=== PATIENT | male | born 1990 | race Hispanic/Latino ===

== ENCOUNTER 2019-09-29 16:23 | Emergency (ER) | payer SELFPAY ==
--- NOTE | 2019-09-29 19:44 | ER ---
Nurse's Notes [facility] Name: Shania Bowman Age: 29 yrs Sex: Male : 1990 Arrival Date: 09/29/2019 Time: 16:25 Bed 19 Private MD: Diagnosis: Acute upper respiratory infection, unspecified Presentation: 09/28 16:42 Chief complaint: Patient states: My GF said she has symptoms of Covid and I have been ca1 with her for a week in a motel. I don't have symptoms, I just want to get tested. Coronavirus screen: Proceed with normal triage. Patient denies a cough. Patient denies shortness of breath or difficulty breathing. Patient denies measured and/or subjective temperature greater than 100.4F prior to today's visit. Patient denies travel on a cruise ship or to a country the [facility] currently lists as an affected area. Patient denies contact with known and/or suspected case of COVID-19. Ebola Screen: Patient negative for fever greater than or equal to 101.5 degrees Fahrenheit, and additional compatible Ebola Virus Disease symptoms Patient denies exposure to infectious person. Patient denies travel to an Ebola-affected area in the 21 days before illness onset. No symptoms or risks identified at this time. Initial Sepsis Screen: Does the patient meet any 2 criteria? No. Patient's initial sepsis screen is negative. Does the patient have a suspected source of infection? No. Patient's initial sepsis screen is negative. Risk Assessment: Do you want to hurt yourself or someone else? Patient reports no desire to harm self or others. Onset of symptoms was September 29, 2019. 16:42 Method Of Arrival: Ambulatory ca1 16:42 Acuity: BROCK 4 ca1 Triage Assessment: 18:45 General: Appears in no apparent distress. comfortable, Behavior is calm, cooperative, bp appropriate for age. Pain: Denies pain. EENT: No deficits noted. Neuro: No deficits noted. Cardiovascular: No deficits noted. Respiratory: No deficits noted. GI: No signs and/or symptoms were reported involving the gastrointestinal system. : No signs and/or symptoms were reported regarding the genitourinary system. Derm: No deficits noted. Musculoskeletal: No deficits noted. Historical: - Allergies: 16:44 No Known Allergies; ca1 - Home Meds: 16:44 None [Active]; ca1 - PMHx: 16:44 None; ca1 - PSHx: 16:44 None; ca1 - Immunization history:: Adult Immunizations up to date. - Social history:: Smoking status: Patient reports the use of cigarette tobacco products, denies chronic smoking, but will smoke occasionally, Patient/guardian denies using alcohol, street drugs, The patient lives with family. - Family history:: not pertinent. Screenin:45 Abuse screen: Denies threats or abuse. Denies injuries from another. Nutritional bp screening: No deficits noted. Tuberculosis screening: No symptoms or risk factors identified. Fall Risk None identified. Assessment: 18:45 General: SEE TRIAGE NOTE. bp 20:03 Reassessment: Patient appears in no apparent distress at this time. reported jd3 understanding of discharge instructions. Patient states feeling better. General: Appears in no apparent distress. comfortable, Behavior is calm, cooperative, appropriate for age. Pain: Denies pain. Neuro: Level of Consciousness is awake, alert, obeys commands, Oriented to person, place, time, situation. Cardiovascular: Capillary refill < 3 seconds Patient's skin is warm and dry. Respiratory: Airway is patent Respiratory effort is even, unlabored, Respiratory pattern is regular, symmetrical, Denies cough, shortness of breath. GI: No signs and/or symptoms were reported involving the gastrointestinal system. : No signs and/or symptoms were reported regarding the genitourinary system. EENT: No signs and/or symptoms were reported regarding the EENT system. Derm: Skin is intact, Skin is dry, Skin is normal, Skin temperature is warm. Musculoskeletal: Circulation, motion, and sensation intact. Range of motion: intact in all extremities. Vital Signs: 16:42 BP 118 / 74; Pulse 78; Resp 15 S; Temp 98.6(TE); Pulse Ox 99% on R/A; Weight 77.11 kg ca1 (R); Height 5 ft. 11 in. (180.34 cm) (R); 20:04 Pulse 80; Resp 16 S; Pulse Ox 100% on R/A; jd3 16:42 Body Mass Index 23.71 (77.11 kg, 180.34 cm) ca1 ED Course: 16:25 Patient arrived in ED. as 16:44 Triage completed. ca1 16:44 Arm band placed on right wrist. ca1 18:45 Patient has correct armband on for positive identification. Bed in low position. Call bp light in reach. Side rails up X2. 18:46 Elliott Santa, RN is Primary Nurse. bp 19:01 Kati Kapoor MD is Attending Physician. ma2 20:04 No provider procedures requiring assistance completed. Patient did not have IV access jd3 during this emergency room visit. Administered Medications: No medications were administered Outcome: 19:44 Discharge ordered by . ma2 20:05 Discharged to home ambulatory, with family. jd3 20:05 Condition: stable 20:05 Discharge instructions given to patient, Instructed on discharge instructions, follow up and referral plans. Demonstrated understanding of instructions, follow-up care. 20:05 Patient left the ED. jd3 Signatures: Kaelyn He Jonathon, RN RN Elliott Senior, RN RN Kati Brink MD MD ma2 Acob, Cheryl RN RN ca1
--- NOTE | 2019-09-29 19:44 | EDPHYS ---
Physician Documentation [facility] Name: Shania Bowman Age: 29 yrs Sex: Male : 1990 Arrival Date: 09/29/2019 Time: 16:25 Bed 19 Private MD: ED Physician Kati Kapoor HPI: 09/28 19:42 This 29 yrs old Male presents to ER via Ambulatory with complaints of r/o ma2 covid. 19:42 Onset: The symptoms/episode began/occurred gradually, 1 day(s) ago. Severity of ma2 symptoms: At their worst the symptoms were very mild in the emergency department the symptoms have improved. The patient has not experienced similar symptoms in the past. Historical: - Allergies: 16:44 No Known Allergies; ca1 - Home Meds: 16:44 None [Active]; ca1 - PMHx: 16:44 None; ca1 - PSHx: 16:44 None; ca1 - Immunization history:: Adult Immunizations up to date. - Social history:: Smoking status: Patient reports the use of cigarette tobacco products, denies chronic smoking, but will smoke occasionally, Patient/guardian denies using alcohol, street drugs, The patient lives with family. - Family history:: not pertinent. ROS: 19:42 Constitutional: Negative for fever, chills, and weight loss. ma2 19:42 All other systems are negative. Exam: 19:42 Constitutional: This is a well developed, well nourished patient who is awake, alert, ma2 and in no acute distress. Chest/axilla: Normal chest wall appearance and motion. Nontender with no deformity. No lesions are appreciated. Cardiovascular: Regular rate and rhythm with a normal S1 and S2. No gallops, murmurs, or rubs. Normal PMI, no JVD. No pulse deficits. Respiratory: Lungs have equal breath sounds bilaterally, clear to auscultation and percussion. No rales, rhonchi or wheezes noted. No increased work of breathing, no retractions or nasal flaring. Abdomen/GI: Soft, non-tender, with normal bowel sounds. No distension or tympany. No guarding or rebound. No evidence of tenderness throughout. Neuro: Awake and alert, GCS 15, oriented to person, place, time, and situation. Cranial nerves II-XII grossly intact. Motor strength 5/5 in all extremities. Sensory grossly intact. Cerebellar exam normal. Normal gait. Vital Signs: 16:42 BP 118 / 74; Pulse 78; Resp 15 S; Temp 98.6(TE); Pulse Ox 99% on R/A; Weight 77.11 kg ca1 (R); Height 5 ft. 11 in. (180.34 cm) (R); 20:04 Pulse 80; Resp 16 S; Pulse Ox 100% on R/A; jd3 16:42 Body Mass Index 23.71 (77.11 kg, 180.34 cm) ca1 MDM: 19:01 Patient medically screened. ma2 19:42 Differential Diagnosis flu, covid vs uri . Data reviewed: vital signs, nurses notes. ma2 Counseling: I had a detailed discussion with the patient and/or guardian regarding: the historical points, exam findings, and any diagnostic results supporting the discharge/admit diagnosis, the presence of at least one elevated blood pressure reading (>120/80) during this emergency department visit. Response to treatment: the patient's symptoms have resolved after treatment. ED course: has no symptoms . Administered Medications: No medications were administered Disposition: 09/29/19 19:44 Discharged to Home. Impression: Acute upper respiratory infection, unspecified. - Condition is Stable. - Discharge Instructions: Upper Respiratory Infection, Adult, COVID-19. - Work release form, Medication Reconciliation Form, Thank You Letter, Antibiotic Education, Prescription Opioid Use form. - Follow up: Private Physician; When: Tomorrow; Reason: Continuance of care. - Notes: recommed testing for COvid at other sites, list of testing sites is provided Signatures: Javy Luna RN RN Kati Vazquez MD MD ma2 Jessica Seaman RN RN ca1 Corrections: (The following items were deleted from the chart) 20:05 19:44 09/29/2019 19:44 Discharged to Home. Impression: Acute upper respiratory jd3 infection, unspecified. Condition is Stable. Forms are Medication Reconciliation Form, Thank You Letter, Antibiotic Education, Prescription Opioid Use. Follow up: Private Physician; When: Tomorrow; Reason: Continuance of care. ma2
[2019-09-29 20:19] VITALS: BP 99/72; TEMP 97.4
[2019-09-29 20:21] VITALS: O2SAT 99
== END 2019-09-29 20:05 | disposition home or self-care (01) ==
LOC: ER 16:23
DX: J06.9 Acute upper respiratory infection, unspecified (principal)
CPT/HCPCS: 99281